=== PATIENT | male | born 1945 | race Caucasian/White ===

== ENCOUNTER 2017-09-11 15:09 | Emergency (ER) | payer MEDICARE ==
[~2017-09-11] VITALS: Ht 172.7 cm; Wt 90.0 kg
[2017-09-11] MEDS ORDERED: LISINOPRIL10 M1 PO (15:26)
[2017-09-11] MEDS ORDERED: CRESTOR10 MG PO (15:26)
[2017-09-11] MEDS ORDERED: ZOLPIDEM10 M1 PO (15:26)
[2017-09-11] MEDS ORDERED: PRAMIPEXOLE0.5 MG PO (15:28)
[2017-09-11] MEDS ORDERED: MUPIROCIN21 TOP (17:14)
[2017-09-11 17:16] VITALS: BP 120/80
== END 2017-09-11 17:30 | disposition home or self-care (01) ==
LOC: ED 15:09
DX: S00.31XA Abrasion of nose, initial encounter (principal); S80.212A Abrasion, left knee, initial encounter; S80.211A Abrasion, right knee, initial encounter; S60.512A Abrasion of left hand, initial encounter; S60.511A Abrasion of right hand, initial encounter; I10 Essential (primary) hypertension; W01.0XXA Fall on same level from slipping, tripping and stumbling without subsequent striking against object, initial encounter